=== PATIENT | female | born 2000 | race Hispanic/Latino ===

== ENCOUNTER 2021-06-19 23:23 | Emergency (ER) | payer BC ==
[2021-06-19] MEDS ORDERED: predniSONE 20 MG TAB ONE ×2 (23:47)
[2021-06-19] MEDS ORDERED: Famotidine 20 MG TAB ONE (23:48)
== END 2021-06-20 00:31 | disposition home or self-care (01) ==
LOC: CSHERS 23:23
DX: T78.40XA Allergy, unspecified, initial encounter (principal); J45.909 Unspecified asthma, uncomplicated
CPT/HCPCS: 99283; J7512